=== PATIENT | male | born 1980 | race Hispanic/Latino ===

== ENCOUNTER 2023-03-14 11:08 | Emergency (ER) | payer OTHER ==
[2023-03-14] MEDS ORDERED: Dexamethasone 10 MG/ML VIAL ONE (12:33)
[2023-03-14] MEDS ORDERED: Ketorolac Tromethamine 30 MG/ML VIAL ONE (12:33)
[2023-03-14] MEDS ORDERED: Bicillin LA 1.2 MILLION UNITS/2 ML SYRINGE IM SCH (14:15)
== END 2023-03-14 14:25 | disposition home or self-care (01) ==
LOC: CSHERS 11:08 → EDBD 11:08 → CSHERS 14:25
DX: J02.0 Streptococcal pharyngitis (principal); I10 Essential (primary) hypertension; Z20.822 Contact with and (suspected) exposure to COVID-19
CPT/HCPCS: 87430; 87635; 96372; 99283; J0561; J1100; J1885

== ENCOUNTER 2023-08-08 19:33 | Emergency (ER) | payer OTHER ==
[2023-08-08 21:35] LABS: SARS-CoV-2 NAA Rapid Test Not Detected (NotDetected)
[2023-08-08] MEDS ORDERED: Amoxicillin/Potassium Clav 875 MG TAB ONE (22:10)
[2023-08-08] MEDS ORDERED: Dexamethasone 4 MG TAB ONE ×2 (22:10→22:14)
[2023-08-08] MEDS ORDERED: Ketorolac Tromethamine 30 MG (1 mL) VIAL ONE (22:10)
== END 2023-08-08 22:32 | disposition home or self-care (01) ==
LOC: CSHERS 19:33
DX: J02.0 Streptococcal pharyngitis (principal); I10 Essential (primary) hypertension
CPT/HCPCS: 87430; 96372; 99283; J1885; J8540; U0002